=== PATIENT | male | born 1965 | race Caucasian/White ===

== ENCOUNTER 2018-05-05 07:41 | Emergency (ER) | payer MEDICAID ==
[~2018-05-05] VITALS: Ht 180.3 cm; Wt 81.6 kg
[2018-05-05 07:54] VITALS: BP 158/113
== END 2018-05-05 08:29 | disposition home or self-care (01) ==
LOC: ER 07:41
DX: M72.2 Plantar fascial fibromatosis (principal); I10 Essential (primary) hypertension; F17.210 Nicotine dependence, cigarettes, uncomplicated; F12.90 Cannabis use, unspecified, uncomplicated
CPT/HCPCS: 73620

== ENCOUNTER 2019-12-22 09:30 | Emergency (ER) | payer MEDICAID ==
[~2019-12-22] VITALS: Ht 180.3 cm; Wt 83.9 kg
[2019-12-22 09:36] VITALS: BP 154/109
== END 2019-12-22 10:36 | disposition home or self-care (01) ==
LOC: ER 09:30
DX: H00.014 Hordeolum externum left upper eyelid (principal); H11.32 Conjunctival hemorrhage, left eye; I10 Essential (primary) hypertension; F17.210 Nicotine dependence, cigarettes, uncomplicated